=== PATIENT | female | born 1985 | race Caucasian/White ===

== ENCOUNTER 2017-10-07 10:06 | Emergency (ER) | payer SELFPAY ==
[~2017-10-07] VITALS: Ht 162.6 cm; Wt 97.5 kg
[2017-10-07 10:17] VITALS: Ht 162.6 cm; Wt 97.5 kg
[2017-10-07 10:59] LABS: BASOPHIL % 0.3 % (0-2); PLATELET COUNT 331 x10^3mcL (130-400); RED CELL DISTRIBUTION WIDTH 14.5 % (11.5-14.5)
[2017-10-07 11:17] LABS: CALCIUM 8.9 mg/dL (8.5-10.1); CARBON DIOXIDE 25.8 mmol/L (21-32); CHLORIDE SERUM 105 mmol/L (98-107); CREATININE SERUM 0.8 mg/dL (0.6-1.0); GFR1 > 60 mL/min; GLUCOSE SERUM 123 mg/dL (74-106); SODIUM SERUM 142 mmol/L (136-145)
[2017-10-07 11:21] LABS: ALBUMIN 3.8 g/dL (3.4-5.0); ALKALINE PHOSPHATASE 84 U/L (46-116); ALT/SGPT 55 U/L (14-59); AMYLASE 44 U/L (25-115); AST/SGOT 21 U/L (15-37); BILIRUBIN TOTAL 0.31 mg/dL (0.20-1.00); LIPASE 140 IU/L (73-393); TOTAL PROTEIN, SERUM 7.7 g/dL (6.4-8.2)
[2017-10-07 13:52] VITALS: BP 129/69
== END 2017-10-07 13:52 | disposition home or self-care (01) ==
LOC: ED 10:06
PROVIDERS: Specialist
DX: N23 Unspecified renal colic (principal)
CPT/HCPCS: J1885; J2405; J3010; J7030